=== PATIENT | female | born 1935 | race Caucasian/White ===

== ENCOUNTER → 2018-04-09 | Outpatient (CLI) | payer MEDICARE, BC ==
--- NOTE | 2018-04-09 10:55 | Diagnostic Imaging Report ---
PROCEDURE:C-SPINE COMPLETE COMPARISON:None. INDICATIONS:HEADACHES FINDINGS: The cervical spine is visualized from the skull base to the top of T1 on the lateral radiograph. No acute, displaced fracture or subluxation. Soft tissue, ligamentous, and spinal cord abnormalities cannot be excluded on the basis of plain radiography. There is disc space narrowing and marginal osteophytosis at C3-4 and C5-6, along with uncovertebral arthrosis. Mild right-sided foraminal narrowing at C3-4 and C4-5. Mild degenerative changes at the atlantoaxial articulation. Prevertebral soft tissues are of normal thickness. Calcified granulomata in the lung apices with left greater than right apical scar. Multiple calcified mediastinal lymph nodes partially visualized. CONCLUSION: No acute osseous abnormality. 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 Cervical spine MRI may be of benefit for further evaluation if there is clinical concern for radiculopathy. Evidence of prior pulmonary granulomatous infection. Dictated by: Jarret Hoff M.D. on 04/09/2018 at 11:00 Electronically approved by: Jarret Hoff M.D. on 04/09/2018 at 11:00
--- NOTE | 2018-04-09 11:36 | Diagnostic Imaging Report ---
EXAM: DXA BONE DENSITY INDICATIONS: ASYMPTOMATIC MENOPAUSAL STATE COMPARISON: None. FINDINGS: Proximal left femur neck bone mineral density (BMD) (g/cm2):0.772 Femur T-score (standard deviation relative to young adult mean BMD): -0.7 Femur Z-score (standard deviation relative to age-matched control group):1.8 Lumbar bone mineral density (BMD) (g/cm2):1.153 Lumbar T-score (standard deviation relative to young adult mean BMD): 1.0 Lumbar Z-score (standard deviation relative to age-matched control group):3.8 Change since prior exam (%): Femur:Not applicable. Spine:Not applicable. Change since oldest prior exam (%): Femur:Not applicable. Spine:Not applicable. CONCLUSION: 1. Bone mineral density in the left femur is classified as normal. Fracture risk is low. 2. Bone mineral density in the spine is classified as normal. Fracture risk is low. World Health Organization Classification: *The Z-score is provided for informational purposes. The T-score is preferable for clinical decisions. When comparing exams, a change of >4% is considered statistically significant. SUGGESTED RECOMMENDATIONS: Normal \T\ Osteopenia:Consideration should be given to use of calcium supplementation, daily multiple vitamins and adequate exercise, as preventive measures against osteoporosis, if clinically indicated. Osteoporosis \T\ Severe Osteoporosis:In addition to the above, consideration should be given to medical therapy against osteoporosis, if clinically indicated. Dictated by: Phoenix Cheung M.D. on 04/09/2018 at 11:40 Electronically approved by: Phoenix Cheung M.D. on 04/09/2018 at 11:40
--- NOTE | 2018-04-10 15:43 | Diagnostic Imaging Report ---
#[id number] - MGSCRBIL #BILATERAL DIGITAL SCREENING MAMMOGRAM WITH CAD: 04/09/2018 CLINICAL: Routine screening. Comparison is made to exams dated: 04/16/2016 mammogram and 02/18/2015 mammogram - [facility]. Current study contains 5 films. The tissue of both breasts is heterogeneously dense. This may lower the sensitivity of mammography. Current study was also evaluated with a Computer Aided Detection (CAD) system. There are benign vascular calcifications and stable calcifications in both breasts. There also are benign densities in both breasts. No significant masses, calcifications or other findings are seen in either breast. There has been no significant interval change. IMPRESSION: BENIGN There is no mammographic evidence of malignancy. A 1 year screening mammogram is recommended. The patient will be notified by letter of the results. Rakan Swann Jr., D.O. cw/:04/10/2018 09:07:40 Dental Insurance Biller: Zaida ZAMORANO(Ata)(Carina), [facility] letter sent: Compared to Prior B9 Mammogram BI-RADS: 2 Benign
== END ==
LOC: MAMMO 09:15
PROVIDERS: ATTEND Family Medicine
DX: Z12.31 Encounter for screening mammogram for malignant neoplasm of breast (principal); Z78.0 Asymptomatic menopausal state; M54.12 Radiculopathy, cervical region
CPT/HCPCS: 72050; 77067; 77080

== ENCOUNTER 2018-10-13 16:31 | Emergency (ER) | payer MEDICARE, BC ==
[~2018-10-13] VITALS: Ht 157.5 cm; Wt 61.2 kg
--- OUTSIDE RECORDS SUMMARY | 2018-10-13 16:34 | XMS REPORT ---
[facility] Address Unknown Phone Unavailable Care Team Providers Care Fire Inspector Name Role Phone Ger GALDAMEZ Unavailable Unavailable Problems This patient has no known problems. Allergies, Adverse Reactions, Alerts This patient has no known allergies or adverse reactions. Medications This patient has no known medications. Results Test Description Test Time Test Comments Text Results Atomic Results Result Comments BONE DXA DUAL ENERGY 2018-04-09 11:40:00 [place] [address] Patient Name: SRI TORRES MR #: [id number] : 1935 Age/Sex: 82/F Req #: [id number] [facility] Physician: Ordered by: ELISABET GALDAMEZ MD Report #: [id number] Location: [facility] Room/Bed: Procedure: [id number] DX/BONE DXA DUAL ENERGY Exam Date: Exam Time: REPORT STATUS: Signed EXAM: DXA BONE DENSITY INDICATIONS: ASYMPTOMATIC MENOPAUSAL STATE COMPARISON: None. FINDINGS: Proximal left femur neck bone mineral density (BMD) (g/cm2): 0.772 Femur T-score (standard deviation relative to young adult mean BMD): -0.7 Femur Z-score (standard deviation relative to age-matched control group): 1.8 Lumbar bone mineral density (BMD) (g/cm2): 1.153 Lumbar T-score (standard deviation relative to young adult mean BMD): 1.0 Lumbar Z-score (standard deviation relative to age-matched control group): 3.8 Change since prior exam (%): Femur: Not applicable. Spine: Not applicable. Change since oldest prior exam (%): Femur: Not applicable. Spine: Not applicable. CONCLUSION: 1. Bone mineral density in the left femur is classified as normal. Fracture risk is low. 2. Bone mineral density in the spine is classified as normal. Fracture risk is low. World Health Organization Classification: *The Z-score is provided for informational purposes. The T-score is preferable for clinical decisions. When comparing exams, a change of >4% is considered statistically significant. SUGGESTED RECOMMENDATIONS: Normal T Osteopenia: Consideration should be given to use of calcium supplementation, daily multiple vitamins and adequate exercise, as preventive measures against osteoporosis, if clinically indicated. Osteoporosis T Severe Osteoporosis: In addition to the above, consideration should be given to medical therapy against osteoporosis, if clinically indicated. Dictated by: Maya Cheung M.D. on 04/09/2018 at 11:40 Electronically approved by: Maya Cheung M.D. on 04/09/2018 at 11:40 Dictated By: MAYA CHEUNG MD 1140 Transcribed By: NEREIDA on 04/09/18 1140 COPY TO: ELISABET GALDAMEZ MD MAMMOGRAPHY DIGITAL SCR BILAT 2018-04-09 11:13:00 [place] [address] Patient Name: SRI TORRES MR #: [id number] : 1935 Age/Sex: 82/F Req #: [id number] Adm Physician: Ordered by: ELISABET GALDAMEZ MD Report #: [id number] Location: MAMMO Room/Bed: Procedure: [id number] MG/MAMMOGRAPHY DIGITAL SCR BILAT Exam Date: 04/09/18 Exam Time: 0946 REPORT STATUS: Signed #[id number] - MGSCRBIL #BILATERAL DIGITAL SCREENING MAMMOGRAM WITH CAD: 04/09/2018 CLINICAL: Routine screening. Comparison is made to exams dated: 04/16/2016 mammogram and 02/18/2015 mammogram - [facility]. Current study contains 5 films. The tissue of both breasts is heterogeneously dense. This may lower the sensitivity of mammography. Current study was also evaluated with a Computer Aided Detection (CAD) system. There are benign vascular calcifications and stable calcifications in both breasts. There also are benign densities in both breasts. No significant masses, calcifications or other findings are seen in either breast. There has been no significant interval change. IMPRESSION: BENIGN There is no mammographic evidence of malignancy. A 1 year screening mammogram is recommended. The patient will be notified by letter of the results. Agnieszka Swann Jr., D.O. cw/:04/10/2018 09:07:40 [employer] Suspension Coordinator: Zaida Zamudio RT(R)(M), [facility] letter sent: Compared to Prior B9 Mammogram BI-RADS: 2 Benign Dictated By: AGNIESZKA SWANN DO 6 Transcribed By: IGOR on 04/10/18906 COPY TO: ELISABET GALDAMEZ MD CERVICAL SPINE 4 OR 5 VIEWS 2018-04-09 11:00:00 [place] [address] Patient Name: SRI TORRES MR #: [id number] : 1935 Age/Sex: 82/F Req #: [id number] Adm Physician: Ordered by: ELISABET GALDAMEZ MD Report #: [id number] Location: MAMMO Room/Bed: Procedure: [id number] DX/CERVICAL SPINE 4 OR 5 VIEWS Exam Date: 04/09/18 Exam Time: 0846 REPORT STATUS: Signed PROCEDURE: C-SPINE COMPLETE COMPARISON: None. INDICATIONS: HEADACHES FINDINGS: The cervical spine is visualized from the skull base to the top of T1 on the lateral radiograph. No acute, displaced fracture or subluxation. Soft tissue, ligamentous, and spinal cord abnormalities cannot be excluded on the basis of plain radiography. There is disc space narrowing and marginal osteophytosis at C3-4 and C5-6, along with uncovertebral arthrosis. Mild right-sided foraminal narrowing at C3-4 and C4-5. Mild degenerative changes at the atlantoaxial articulation. Prevertebral soft tissues are of normal thickness. Calcified granulomata in the lung apices with left greater than right apical scar. Multiple calcified mediastinal lymph nodes partially visualized. CONCLUSION: No acute osseous abnormality. 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 Cervical spine MRI may be of benefit for further evaluation if there is clinical concern for radiculopathy. Evidence of prior pulmonary granulomatous infection. Dictated by: Mai Aguirre M.D. on 04/09/2018 at 11:00 Electronically approved by: Mai Aguirre M.D. on 04/09/2018 at 11:00 Dictated By: MAI AGUIRRE MD 1100 Transcribed By: NEREIDA on 04/09/18 1100 COPY TO: ELISABET GALDAMEZ MD
[2018-10-13 17:43] LABS: CLARITY,URINE SL CLOUDY (CLEAR); COLOR,URINE YELLOW (YELLOW); LEUKOCYTE ESTERASE ,URINE TRACE (NEGATIVE)
[2018-10-13 17:44] LABS: BILIRUBIN,URINE NEGATIVE (NEGATIVE); KETONES,URINE NEGATIVE (NEGATIVE); NITRITE,URINE NEGATIVE (NEGATIVE); PROTEIN,URINE DIPSTICK NEGATIVE (NEGATIVE); URINE UROBILINOGEN 1 mg/dL (0.2 - 1)
[2018-10-13 17:57] LABS: EPITHELIAL CELLS,URINE MODERATE /LPF
[2018-10-13 18:11] LABS: BASOPHILS # (AUTO) 0.1 (0.0-0.1); BASOPHILS % 1.2 % (0.0-1.0); EOSINOPHILS # (AUTO) 0.2 (0.0-0.4); EOSINOPHILS % 2.9 % (0.0-6.0); HEMATOCRIT 41.3 % (34.2-44.1); HEMOGLOBIN 13.9 g/dL (12.0-16.0); LYMPHOCYTES # (AUTO) 1.5 (1.0-3.2); MEAN CORPUSCULAR HEMOGLOBIN 32.2 pg (28-32); MEAN CORPUSCULAR HGB CONC 33.7 g/dL (31-35); MEAN CORPUSCULAR VOLUME 95.6 fL (81-99); MONOCYTES # (AUTO) 0.7 (0.2-0.8); MONOCYTES % 11.3 % (4.4-11.3); NEUTROPHILS # (AUTO) 3.4 (2.1-6.9); NEUTROPHILS % 58.3 % (38.7-80.0); PLATELET COUNT 294 x10e3/uL (140-360); RED BLOOD COUNT 4.32 x10e6/uL (3.6-5.1); RED CELL DISTRIBUTION WIDTH 13.5 % (11.7-14.4)
[2018-10-13 18:27] LABS: ALANINE AMINOTRANSFERASE 28 IU/L (0-55); ALBUMIN/GLOBULIN RATIO 1.1 (0.8-2.0); ALKALINE PHOSPHATASE 71 IU/L (40-150); ANION GAP 13.8 mmol/L (8-16); BLOOD UREA NITROGEN 11 mg/dL (7-26); BUN/CREATININE RATIO 13 (6-25); CALCIUM 9.7 mg/dL (8.4-10.2); CARBON DIOXIDE 27 mmol/L (22-29); CHLORIDE 102 mmol/L (98-107); CREATININE, SERUM 0.86 mg/dL (0.57-1.11); EST GLOMERULAR FILTRATION RATE > 60 ML/MIN (60-); GLUCOSE 89 mg/dL (74-118); POTASSIUM 3.8 mmol/L (3.5-5.1); SODIUM 139 mmol/L (136-145)
[2018-10-13 18:44] LABS: INR 0.87; PROTHROMBIN TIME 12.7 seconds (11.9-14.5)
[2018-10-13 18:45] LABS: PARTIAL THROMBOPLASTIN TIME 27.4 seconds (23.8-35.5)
--- NOTE | 2018-10-13 18:47 | Diagnostic Imaging Report ---
CT BRAIN WO HISTORY: Altered mental status COMPARISON: None. Technique: Noncontrast axial scans were obtained from skull base to the vertex. Coronal and sagittal reconstructions obtained from the axial data. One or more of the following dose reduction techniques were used: Automated exposure control, adjustment of the mA and/or kV according to patient size, and/or utilization of iterative reconstruction technique. Beam hardening artifacts obscure some details. DISCUSSION: Scalp/Skull: Unremarkable. Brain sulci: Prominent. Ventricles: Compensatory dilatation. Extra-axial spaces: No masses or fluid collections. Carotid siphon and vertebral artery calcifications are present. Parenchyma: Mild bilateral deep white matter hypodensity is likely chronic microvascular ischemic change. Otherwise, no masses, hemorrhage, or large vascular territory acute infarct. Dural sinuses: No abnormal densities. Sellar/Suprasellar region: Intact. Skull base: Intact. Incidental findings: Both ocular lenses are thinned. IMPRESSION: 1. No acute intracranial abnormalities. 2. Mild supratentorial chronic microvascular ischemic change. Generalized cerebral volume loss. Signed by: Dr. Timothy Pat M.D. on 10/13/2018 6:43 PM
[2018-10-13 18:52] LABS: CREATINE KINASE 221 IU/L (29-168); MAGNESIUM 2.1 MG/DL (1.3-2.1)
--- NOTE | 2018-10-13 19:54 | Diagnostic Imaging Report ---
EXAMINATION: CHEST SINGLE (PORTABLE) INDICATION: Altered mental status. COMPARISON: None FINDINGS: AP view TUBES and LINES: None. LUNGS: Lungs are well inflated. Numerous calcified nodules likely representing calcified granulomas. There is no evidence of pneumonia or pulmonary edema. PLEURA: No pleural effusion or pneumothorax. HEART AND MEDIASTINUM: Numerous calcified hilar and mediastinal lymph nodes likely from prior granulomatous infection. The cardiomediastinal silhouette is otherwise unremarkable. BONES AND SOFT TISSUES: No acute osseous lesion. Soft tissues are unremarkable. UPPER ABDOMEN: No free air under the diaphragm. IMPRESSION: No acute thoracic abnormality. 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 Signed by: DR. Fito Donovan MD on 10/13/2018 7:51 PM
[2018-10-13 20:11] VITALS: BP 119/67
[2018-10-13] MEDS ORDERED: ACETAMINOPHEN 325 MG TAB PO ONE ×2 (20:15)
== END 2018-10-13 21:00 | disposition home or self-care (01) ==
LOC: ER 16:31
DX: R41.0 Disorientation, unspecified (principal); R51 Headache; F10.231 Alcohol dependence with withdrawal delirium; N39.0 Urinary tract infection, site not specified; I10 Essential (primary) hypertension
CPT/HCPCS: 36415; 70450; 71045; 80053; 81001; 82550; 82553; 83605; 83735; 84484; 85025; 85610; 85730; 87040; 87086; 99284

== ENCOUNTER 2018-12-18 15:28 | Emergency (ER) | payer MEDICARE, BC ==
[~2018-12-18] VITALS: Ht 157.5 cm; Wt 61.2 kg
--- NOTE | 2018-12-18 16:48 | NUR ---
PER DR. MARTINEZ, PATIENT GIVEN INFORMATION ON [facility] AND [place]
== END 2018-12-18 16:50 | disposition left against medical advice (07) ==
LOC: ER 15:28
DX: Z53.21 Procedure and treatment not carried out due to patient leaving prior to being seen by health care provider (principal)